=== PATIENT | female | born 1985 | race Caucasian/White ===

== ENCOUNTER 2018-07-11 10:01 | Emergency (ER) | payer SELFPAY ==
--- NOTE | 2018-07-11 10:44 | ER Document Report ---
ED General - General Chief Complaint: Vaginal Bleeding Stated Complaint: VAGINAL BLEED Time Seen by Provider: 07/11/18 10:36 Notes: Patient is a 33-year-old female that is at approximately 11 weeks gravid that presents to the emergency department for chief complaint of vaginal bleeding. Patient states that last night she had vaginal bleeding, and thinks she passed a clot that she states is rather large, and she has had some blood with wiping this morning as well. She had some mild cramping at the time, but has since resolved, denies having any pain at this time. She reports she is otherwise healthy, has been doing otherwise well this . She does smoke about a pack of cigarettes every 3 days. She denies any alcohol use. Denies prior history of miscarriage. She denies having lightheadedness, dizziness, chest pain, shortness of breath, nausea, vomiting. Past Medical History: Denies chronic medical conditions Past Surgical History: Tonsillectomy Social History: Admits to smoking a pack of cigarettes every 3 days, denies current alcohol or drug use. Family History: Reviewed and noncontributory for presenting illness Allergies: Reviewed, see documented allergy list. REVIEW OF SYSTEMS: Other than noted above, the 12 point review of systems was reviewed with the patient and were negative, all pertinent findings are included in the HPI. PHYSICAL EXAMINATION: Vital signs reviewed, nursing noted reviewed. GENERAL: Well-appearing, well-nourished and in no acute distress. HEAD: Atraumatic, normocephalic. EYES: Eyes appear normal, extraocular movements intact, sclera anicteric, conjunctiva are normal. ENT: nares patent, oropharynx clear without exudates. Moist mucous membranes. NECK: Normal range of motion, supple without lymphadenopathy LUNGS: Breath sounds clear to auscultation bilaterally and equal. No wheezes rales or rhonchi. HEART: Regular rate and rhythm without murmurs ABDOMEN: Soft, nontender, normoactive bowel sounds. No rebound, guarding, or rigidity. No masses appreciated. EXTREMITIES: Nontender, good range of motion, no pitting or edema. NEUROLOGICAL: No focal neurological deficits. Moves all extremities spontaneously Motor and sensory grossly intact on exam. PSYCH: Normal mood, normal affect. SKIN: Warm, Dry, normal turgor, no rashes or lesions noted on exposed skin TRAVEL OUTSIDE OF THE [place] IN LAST 30 DAYS: No - Related Data Allergies/Adverse Reactions: No Known Allergies Allergy (Unverified 05/26/16 18:02) Past Medical History - Social History Smoking Status: Current Every Day Smoker Chew tobacco use (# tins/day): No Frequency of alcohol use: None Drug Abuse: None Family History: None Patient has suicidal ideation: No Patient has homicidal ideation: No Renal/ Medical History: Denies: Hx Peritoneal Dialysis Past Surgical History: Reports: Hx Tonsillectomy Physical Exam - Vital signs Vitals: Temp Pulse Resp BP Pulse Ox 98.7 F 69 16 107/65 98 07/11/18 10:07 07/11/18 10:07 07/11/18 10:07 07/11/18 10:07 07/11/18 10:07 Course - Re-evaluation Re-evalutation: Patient seen and examined, vital signs reviewed. Patient appears well on exam, she did not have any other complaints of than the vaginal bleeding as described in the HPI. She denied having any pain. Urinalysis, quantitative hCG, and CBC obtained, as well as a transvaginal ultrasound to evaluate for live intrauterine . Ultrasound demonstrated a single live intrauterine , approximately 11 weeks by crown-rump length, closed cervical loss, no subchorionic hemorrhage, or other evidence of bleeding at this time. No anemia. Patient's blood type is O+ according to the patient, no indication for RhoGam on this visit. UA was positive for signs of urinary tract infection, patient will be discharged home with Keflex twice daily for 5 days, she is encouraged strongly to discontinue smoking cigarettes while , and advised bedrest for the next 48 hours, and advised to follow-up with [facility]. - Vital Signs Vital signs: Temp Pulse Resp BP Pulse Ox 99.2 F 60 18 113/64 100 07/11/18 12:02 07/11/18 12:02 07/11/18 12:02 07/11/18 12:02 07/11/18 12:02 - Laboratory Result Diagrams: 07/11/18 11:06 Laboratory results interpreted by me: 07/11/18 07/11/18 11:06 11:06 Beta HCG, Quant 712217.00 H Urine Urobilinogen 4.0 H Ur Leukocyte Esterase MODERATE H Discharge - Discharge Clinical Impression: Vaginal bleeding affecting early UTI (urinary tract infection) Qualifiers: Urinary tract infection type: site unspecified Hematuria presence: without hematuria Qualified Code(s): N39.0 - Urinary tract infection, site not specified Condition: Stable Disposition: HOME, SELF-CARE Instructions: Bleeding During Early ([facility]), Urinary Tract Infection ( [facility]) Additional Instructions: Please take the antibiotics as prescribed, please follow-up with [facility], call for an appointment tomorrow. Please monitor for signs of abdominal cramping, and any further vaginal bleeding, do not hesitate to return to the emergency department if you have any further concerns or worsening symptoms. Prescriptions: Cephalexin [Keflex] 500 mg PO BID #10 capsule Referrals: DEANA PRESSLEY MD [Primary Care Provider] - Follow up as needed [facility] [Provider Group] - Follow up tomorrow
[2018-07-11 11:20] LABS: ABSOLUTE LYMPHOCYTES (AUTO) 2.1 10^3/uL (0.5-4.7); RED CELL DISTRIBUTION WIDTH 12.7 % (11.5-14.0); TOTAL CELLS COUNTED % (AUTO) 100 %; WHITE BLOOD COUNT 6.3 10^3/uL (4.0-10.5)
[2018-07-11 11:26] LABS: APPEARANCE,URINE SLIGHTLY-CLOUDY; BILIRUBIN,URINE NEGATIVE (NEGATIVE); COLOR,URINE YELLOW; GLUCOSE, URINE NEGATIVE (NEGATIVE); KETONES,URINE NEGATIVE (NEGATIVE); LEUKOCYTE ESTERASE,URINE MODERATE (NEGATIVE); NITRITE,URINE NEGATIVE (NEGATIVE); PROTEIN,URINE NEGATIVE (NEGATIVE); URINE SPECIFIC GRAVITY 1.021
[2018-07-11 11:28] LABS: ABSOLUTE EOSINOPHILS # (AUTO) 0.2 10^3/uL (0.0-0.6); ABSOLUTE MONOCYTES (AUTO) 0.4 10^3/uL (0.1-1.4); ABSOLUTE NEUT (AUTO) 3.6 10^3/uL (1.7-8.2); BASOPHILS % (AUTO) 0.7 % (0-2); EOSINOPHILS % (AUTO) 2.6 % (0-6); HEMATOCRIT 40.2 % (36.0-47.0); HEMOGLOBIN 14.1 g/dL (12.0-15.5); LYMPHOCYTES % (AUTO) 33.4 % (13-45); MEAN CORPUSCULAR HEMOGLOBIN 30.7 pg (27.0-33.4); MEAN CORPUSCULAR HGB CONC 35.1 g/dL (32.0-36.0); MEAN CORPUSCULAR VOLUME 88 fl (80-97); MONOCYTES % (AUTO) 7.1 % (3-13); PLATELET COUNT 220 10^3/uL (150-450); RED BLOOD COUNT 4.59 10^6/uL (3.72-5.28); SEGMENTED NEUTROPHILS % (AUTO) 56.2 % (42-78)
--- NOTE | 2018-07-11 11:50 | RADIOLOGY REPORT (SQ) ---
EXAM DESCRIPTION: U/S OB TRANSVAGINAL W/O DOP COMPLETED DATE/TIME: 07/11/2018 11:39 am REASON FOR STUDY: bleeding, passed clot, 11wks gravid COMPARISON: None. TECHNIQUE: Transabdominal static and realtime grayscale images acquired of the pelvis. Additional se lected spectral and color Doppler images recorded. All images stored on PACs. bHCG: Pending. CLINICAL DATES: 11 weeks 3 days LIMITATIONS: None. FINDINGS: FETUS: Single Living intrauterine . ULTRASOUND EGA: 11 weeks 5 days ULTRASOUND JON: 01/25/2019 EFW: Not applicable less than 20 weeks. CRL: 5 cm FHR: 162 beats per minute. SURVEY: Too early to assess. AMNIOTIC FLUID: Adequate amount. PLACENTA: Not yet developed due to early gestation. SUBCHORIONIC BLEED: No SIZE OF BLEED: Not applicable. UTERUS: No masses. No anomalies. CERVICAL LENGTH: 4.3 cm Closed. RIGHT ADNEXA: Normal ovary with normal vascular flow. No adnexal free fluid. No adnexal masses. LEFT ADNEXA: Ovary not identified due to poor acoustical window. No adnexal free fluid. No adnexal masses. FREE FLUID: None. OTHER: No other significant finding. IMPRESSION: LIVING INTRAUTERINE . EGA 11 weeks 5 days Trimester of : First - 0 to 13 weeks. TECHNICAL DOCUMENTATION: JOB ID: [id number] [employer]- All Rights Reserved Reading location - IP/workstation name: [email or web address]
[2018-07-11 12:03] VITALS: BP 113/64
== END 2018-07-11 12:12 | disposition home or self-care (01) ==
LOC: ER 10:01
DX: O23.41 Unspecified infection of urinary tract in pregnancy, first trimester (principal); O20.9 Hemorrhage in early pregnancy, unspecified; O99.331 Smoking (tobacco) complicating pregnancy, first trimester; F17.210 Nicotine dependence, cigarettes, uncomplicated; Z3A.11 11 weeks gestation of pregnancy
CPT/HCPCS: 36415; 76817; 81001; 84702; 85025; 87086; 99284

== ENCOUNTER 2019-01-02 20:52 | Outpatient (CLI) | payer MEDICAID ==
[2019-01-02 21:39] LABS: APPEARANCE,URINE CLOUDY; BILIRUBIN,URINE NEGATIVE (NEGATIVE); CALCIUM OXALATE CRYSTALS,URINE MANY /HPF; COLOR,URINE YELLOW; GLUCOSE, URINE NEGATIVE (NEGATIVE); KETONES,URINE TRACE mg/dL (NEGATIVE); LEUKOCYTE ESTERASE,URINE MODERATE (NEGATIVE); NITRITE,URINE NEGATIVE (NEGATIVE); PROTEIN,URINE NEGATIVE (NEGATIVE); URINE SPECIFIC GRAVITY 1.024
[2019-01-02 21:57] LABS: URINE AMPHETAMINES SCREEN NEGATIVE; URINE BARBITURATES SCREEN NEGATIVE; URINE BENZODIAZEPINES SCREEN NEGATIVE; URINE COCAINE SCREEN NEGATIVE; URINE MARIJUANA (THC) SCREEN NEGATIVE; URINE METHADONE SCREEN NEGATIVE; URINE PHENCYCLIDINE SCREEN NEGATIVE
--- NOTE | 2019-01-02 22:35 | Non Stress Test Report ---
Non Stress Test Datetime Report Generated by CPN: 01/02/2019 22:35 DEMOGRAPHIC EGA NST: 36.3 INDICATION Indication for Study: Ordered by Provider; Other Indication for Study (NST) Other: labor check MONITORING Monitor Explained: Monitor Explained; Test Explained; Patient Verbalized Understanding Time on Monitor: 01/02/2019 21:11 Time off Monitor: 01/02/2019 22:24 NST Duration: 73 NST INTERVENTIONS NST Interventions: None Physician Notified NST: Dr Jorgensen BABY A: [id number] BABY A Movement : Present Contraction Frequency : 2-12 FHR Baseline : 140 Accelerations : 15X15 Decelerations : None Variability : Moderate 6-25bpm NST Review: Questionable if Meets Criteria for Reactive NST NST Review and Verified By : Tamir Alex RN NST Results: Reactive NST REPORT Report Trigger: Send Report
== END 2019-01-02 22:32 | disposition home or self-care (01) ==
LOC: LC 20:52
PROVIDERS: ATTEND Obstetrics & Gynecology
PROC: 4A1HXCZ Monitoring of Products of Conception, Cardiac Rate, External Approach (ICD-10-PCS; principal; 2019-01-02)
DX: O47.03 False labor before 37 completed weeks of gestation, third trimester (principal); Z3A.36 36 weeks gestation of pregnancy
CPT/HCPCS: 59025; 80307; 81001; 84112

== ENCOUNTER 2019-01-13 02:46 | Inpatient (IN) | payer MEDICAID ==
[2019-01-13 03:18] LABS: APPEARANCE,URINE SLIGHTLY-CLOUDY; BILIRUBIN,URINE NEGATIVE (NEGATIVE); COLOR,URINE YELLOW; GLUCOSE, URINE NEGATIVE (NEGATIVE); KETONES,URINE NEGATIVE (NEGATIVE); LEUKOCYTE ESTERASE,URINE MODERATE (NEGATIVE); NITRITE,URINE NEGATIVE (NEGATIVE); PROTEIN,URINE NEGATIVE (NEGATIVE); URINE SPECIFIC GRAVITY 1.012; UROBILINOGEN,URINE NEGATIVE mg/dL (<2.0)
[2019-01-13] MEDS ORDERED: OXYTOCIN 10 UNIT/ML VIAL ONE (03:24)
[2019-01-13] MEDS ORDERED: MISOPROSTOL 0.2 MG TABLET ONE (03:24)
[2019-01-13] MEDS ORDERED: OXYTOCIN/NORMAL SALINE 20 UNIT/1,000 ML RTUINJ ONE (03:25)
[2019-01-13] MEDS ORDERED: LIDOCAINE 1% INJ-PF (10 MG/ML) 30 ML SDV ONE (03:25)
[2019-01-13] MEDS ORDERED: RINGERS SOLUTION,LACTATED 1,000 ML IV PRN (03:26)
--- NOTE | 2019-01-13 03:28 | Admission Physical ---
Datetime Report Generated by CPN: 01/13/2019 03:27 CURRENT ADMISSION Chief Complaint: Uterine Contractions; Suspected Ruptured Membranes Indication for Induction: Not Applicable Admit Impression : Term, Intrauterine ; Active Labor; Ruptured Membranes Admit Plan: Admit to Unit; Initiate Labor Protocol ALLERGIES Medication Allergies: No Medication Allergies: No Known Allergies (05/26/2016) Latex: No Latex Allergies OBSTETRICAL HISTORY EDC: 01/27/2019 00:00 : 6 Para: 4 Term: 2 : 2 IAB: 1 Livin Cesareans: 0 VBACs: 0 Multiple Births: 0 Gestational Diabetes: No Rh Sensitization: No Incompetent Cervix: No SELENA: No Infertility: No ART Treatment: No Uterine Anomaly: No IUGR: No Hx Previous C/S: No Macrosomia: No Hx Loss/Stillborn: No PIH: No Hx : No Placenta Previa/Abruption: No Depression/PP Depression: Yes PTL/PROM: Yes Post Hemorrhage: No Current Procedures: Ultrasound Obstetrical History Comments: G1-EAB G2- 2004 36 week 6lbs 9 oz male G3- 2005 36 week 7lbs 2 oz male G4- 2007 39.6 7lbs 15 oz male G5- 38 weeks 5lbs 11oz male G6- current, late to [facility] RECORDS Alcohol: No Marijuana : No Cocaine: No Other Illicit Drugs: No Cigarettes: Current Everyday Smoker. [id number] Cigarette Frequency: < 5 per day Advised to Stop: Yes MEDICAL HISTORY Diabetes: No Blood Transfusion: No Pulmonary Disease (Asthma, TB): No Breast Disease: No Hypertension: No Sign Manufacturer Surgery: No Heart Disease: No Hosp/Surgery: No Autoimmune Disorder: No Anesthetic Complications: No Kidney Disease: No Abnormal Pap Smear: No Neuro/Epilepsy: No Psychiatric Disorders: No Other Medical Diseases: No Hepatitis/Liver Disease: No Significant Family History: No Varicosities/Phlebitis: No Trauma/Violence : No Thyroid Dysfunction: No Medical History Comments: depression, anxiety, INFECTIOUS HISTORY Gonorrhea: No Genital Herpes: No Chlamydia: Yes Tuberculosis: No Syphilis: No Hepatitis: No HIV/AIDS Exposure: No Rash or Viral Illness: No HPV: No Infectious History Comments: 2003 chlamydia PHYSICAL EXAM General: Normal HEENT: Normal Neurologic: Normal Thyroid: Normal Heart: Normal Lungs: Normal Breast: Normal Back: Normal Abdomen: Normal Genitourinary Exam: Normal Extremities: Normal DTRs: Normal Pelvic Type: Adequate Vital Signs: Reviewed; Within Normal Limits VAGINAL EXAM Dilatation: 4 Effacement: 80 Station: -2 Contraction Comments: q 2-3 MEMBRANES Pooling: Positive Ferning Results: Positive Membranes: Ruptured Amniotic Fluid Color: Clear FETUS A EGA: 38.0 Monitoring: External US FHR- Baseline: 120s Variability: Moderate 6-25bpm Accelerations: 15X15 Decelerations: None FHR Category: Category III Admit Comment: presents to L_D c/o "I think my water broke at 0130" and contractions. Pt admits to good movement. GBS Neg. No co-morbidities. PLANS FOR LABOR AND DELIVERY Labor and Delivery: None Pain Management: Epidural Feeding Preference: Formula Benefit of Breast Feed Discussed: Yes Circumcision: Yes INFORMED CONSENT Signature: with User ID: [email or web address]
[2019-01-13 03:34] LABS: URINE AMPHETAMINES SCREEN NEGATIVE; URINE BARBITURATES SCREEN NEGATIVE; URINE BENZODIAZEPINES SCREEN NEGATIVE; URINE COCAINE SCREEN NEGATIVE; URINE MARIJUANA (THC) SCREEN NEGATIVE; URINE METHADONE SCREEN NEGATIVE; URINE PHENCYCLIDINE SCREEN NEGATIVE
[2019-01-13] MEDS ORDERED: EPHEDRINE SULFATE INJ 50 MG/1 ML AMPULE ONE (03:43)
[2019-01-13] MEDS ORDERED: FENTANYL/BUPIVACAINE/NS/PF 300 MCG/150 ML RTUINJ EPI ONE (03:43)
[2019-01-13] MEDS ORDERED: BUPIVACAINE HCL 0.25 % INJ/PF (2.5 MG/1 ML) 30 ML VIAL ONE (03:43)
[2019-01-13 03:52] LABS: ABSOLUTE EOSINOPHILS # (AUTO) 0.1 10^3/uL (0.0-0.6); ABSOLUTE LYMPHOCYTES (AUTO) 2.3 10^3/uL (0.5-4.7); ABSOLUTE MONOCYTES (AUTO) 0.7 10^3/uL (0.1-1.4); ABSOLUTE NEUT (AUTO) 8.7 10^3/uL (1.7-8.2); BASOPHILS % (AUTO) 0.2 % (0-2); EOSINOPHILS % (AUTO) 0.6 % (0-6); HEMATOCRIT 32.8 % (36.0-47.0); LYMPHOCYTES % (AUTO) 19.2 % (13-45); MEAN CORPUSCULAR HEMOGLOBIN 29.3 pg (27.0-33.4); MEAN CORPUSCULAR HGB CONC 33.6 g/dL (32.0-36.0); MEAN CORPUSCULAR VOLUME 87 fl (80-97); MONOCYTES % (AUTO) 6.2 % (3-13); PLATELET COUNT 178 10^3/uL (150-450); RED BLOOD COUNT 3.77 10^6/uL (3.72-5.28); RED CELL DISTRIBUTION WIDTH 13.2 % (11.5-14.0); SEGMENTED NEUTROPHILS % (AUTO) 73.8 % (42-78); TOTAL CELLS COUNTED % (AUTO) 100 %; WHITE BLOOD COUNT 11.8 10^3/uL (4.0-10.5)
[2019-01-13] MEDS ORDERED: DIBUCAINE 1% OINTMENT 56 GM TP PRN (07:20)
[2019-01-13] MEDS ORDERED: HYDROCODONE/ACETAMINOPHEN 5-325 MG TABLET PO PRN (07:20)
[2019-01-13] MEDS ORDERED: DIPH/PERTUSS(ACELL)/TETANUS VAC/PF 0.5 ML SYR (>=10YO) IM PRN (07:20)
[2019-01-13] MEDS ORDERED: ZOLPIDEM TARTRATE 5 MG TABLET PO PRN (07:20)
[2019-01-13] MEDS ORDERED: BENZOCAINE/MENTHOL AEROSOL SPRAY 56 ML TOP PRN (07:20)
[2019-01-13] MEDS ORDERED: ACETAMINOPHEN WITH CODEINE #3 TABLET PO PRN (07:20)
[2019-01-13] MEDS ORDERED: OXYTOCIN/NORMAL SALINE 20 UNIT/1,000 ML RTUINJ IV PRN (07:20)
--- NOTE | 2019-01-13 09:17 | Delivery Summary ---
Del Sum A-C Datetime Report Generated by CPN: 01/13/2019 09:17 DELIVERY PERSONNEL DELIVERY PERSONNEL: [id number] Delivery Doctor:: Shena Alvarado MD Labor and Delivery Nurse:: Carolyn Bates RN Labor and Delivery Nurse:: Odette Post RN Senior Java Engineer:: Lucila Schmitt RN Resin Coater/AUTOMOBILE SEAT COVER INSTALLER: Kisha Mirza WET MILLING WHEEL OPERATOR Additional Personnel: : Erin Armenta RN MATERNAL INFORMATION Delivery Anesthesia: Epidural Medications During Delivery: cytotec 1000 mcg per rectum Medications After Delivery: Pitocin Drip 20 Units/1000ml NSS; Cytotec 1000mcg Per Rectum/Vagina Estimated Blood Loss (ml): 300 Maternal Complications: None Provider Comments: of a viable male @ 0659 w/ an KARSON presentation; APGARS 9, 9; no lacs LABOR SUMMARY EDC: 01/27/2019 00:00 No. Babies in Womb: 1 Attempted: No Labor Anesthesia: Epidural LABOR INFORMATION Reason for Induction: Not Applicable Onset of Labor: 01/13/2019 01:30 Complete Dilatation: 01/13/2019 06:48 Oxytocin: N/A Group B Beta Strep: Negative Antibiotics # of Doses: 0 Antibiotics Time of Last Dose: N/A Name of Antibiotic Given: N/A Steroids Given: None Reason Steroids Not Administered: Not Applicable MEMBRANES Membranes Rupture Method: Spontaneous Rupture of Membranes: 01/13/2019 01:30 Length of Rupture (hr): 5.48 Amniotic Fluid Color: Clear Amniotic Fluid Amount: Small Amniotic Fluid Odor: Normal STAGES OF LABOR Stage 1 hr: 5 Stage 1 min: 18 Stage 2 hr: 0 Stage 2 min: 11 Stage 3 hr: 0 Stage 3 min: 7 Total Time in Labor hr: 5 Total Time in Labor min: 36 VAGINAL DELIVERY Episiotomy: None Laceration #1: None Laceration Extension #1: N/A Laceration Repair: Not Applicable Sponge Count Correct: Yes Sharps Count Correct: Yes CSECTION DELIVERY Primary Indication: N/A Secondary Indication: N/A CSection Incidence: N/A Labor: N/A Elective: N/A BABY A INFORMATION Delivery Date/Time: 01/13/2019 06:59 Method of Delivery: Vaginal Born in Route : No : N/A Forceps: N/A Vacuum Extraction: N/A Shoulder Dystocia : No PRESENTATION/POSITION BABY A Presentation: Cephalic Cephalic Presentation: Vertex Vertex Position: Left Occipital Anterior Breech Presentation: N/A PLACENTA INFORMATION BABY A Placenta Delivery Time : 01/13/2019 07:06 Placenta Method of Delivery: Spontaneous Placenta Status: Delivered SCORES BABY A Heart Rate 1 min: >100 bpm Resp Effort 1 min: Good Cry Reflex Irritability 1 min: Cough or Sneeze or Pulls Away Muscle Tone 1 min: Active Motion Color 1 min: Body Benjamin Perez, Extremities Blue SCORE 1 MIN: 9 Heart Rate 5 min: >100 bpm Resp Effort 5 min: Good Cry Reflex Irritability 5 min: Cough or Sneeze or Pulls Away Muscle Tone 5 min: Active Motion Color 5 min: Body Benjamin Perez, Extremities Blue SCORE 5 MIN: 9 INFANT INFORMATION BABY A Gestational Age at Delivery: 38.0 Gestational Status: Early Term- 37- 38.6 Weeks Infant Outcome : Liveborn Condition : Stable Infant Sex: Male IDENTIFICATION BABY A Infant Verification Date/Time: 01/13/2019 07:13 ID Band Number: [id number] Mother's Name Verified: Yes Infant RN Verifying : , RN and C.Armenta, RN WEIGHT/LENGTH BABY A Infant Birthweight (gm): 2987 Weight (lb): 6 Infant Weight (oz): 9 Infant Length (in): 19.50 Infant Length (cm): 49.53 CORD INFORMATION BABY A No. Cord Vessels: 3 Nuchal Cord : N/A True Knot: 1 Cord Blood Taken: Yes-For Eval (Mom's Blood Type - or O+) ASSESSMENT BABY A Infant Complications: None Physical Findings at Delivery: Within Normal Limits Infant Respirations: Appears Normal Care By: C.Armenta, RN Transferred To: Remains with Mother BABY B INFORMATION : N/A SIGNATURES Signature: with User ID: [email or web address]
[2019-01-13] MEDS: SENNOSIDES/DOCUSATE 8.6-50 MG 1 EACH TABLET PO SCH (10:39)
[2019-01-13] MEDS: DOCUSATE SODIUM 100 MG CAPSULE PO SCH ×2 (10:39→17:40)
[2019-01-13] MEDS: FERROUS SULFATE 325 MG TABLET PO SCH ×2 (10:39→17:40)
[2019-01-13] MEDS: PRENATAL VITAMIN W DHA CAPSULE PO SCH (10:39)
[2019-01-13] MEDS: IBUPROFEN 800 MG TABLET PO SCH ×2 (13:19→21:23)
[2019-01-13] MEDS: ACETAMINOPHEN WITH CODEINE #3 TABLET PO PRN (17:41)
[2019-01-14] MEDS: IBUPROFEN 800 MG TABLET PO SCH ×3 (05:02→22:20)
[2019-01-14 07:26] LABS: HEMATOCRIT 29.8 % (36.0-47.0); HEMOGLOBIN 10.2 g/dL (12.0-15.5); MEAN CORPUSCULAR HEMOGLOBIN 29.9 pg (27.0-33.4); MEAN CORPUSCULAR HGB CONC 34.3 g/dL (32.0-36.0); MEAN CORPUSCULAR VOLUME 87 fl (80-97); PLATELET COUNT 161 10^3/uL (150-450); RED BLOOD COUNT 3.42 10^6/uL (3.72-5.28); RED CELL DISTRIBUTION WIDTH 12.9 % (11.5-14.0); WHITE BLOOD COUNT 8.7 10^3/uL (4.0-10.5)
[2019-01-14] MEDS: ACETAMINOPHEN WITH CODEINE #3 TABLET PO PRN ×2 (07:57→17:34)
[2019-01-14] MEDS: FERROUS SULFATE 325 MG TABLET PO SCH ×2 (11:08→17:34)
[2019-01-14] MEDS: SENNOSIDES/DOCUSATE 8.6-50 MG 1 EACH TABLET PO SCH (11:08)
[2019-01-14] MEDS: DOCUSATE SODIUM 100 MG CAPSULE PO SCH ×2 (11:08→17:34)
[2019-01-14] MEDS: PRENATAL VITAMIN W DHA CAPSULE PO SCH (11:08)
--- NOTE | 2019-01-14 12:10 | PDOC PROGRESS REPORT ---
Subjective Progress Note for:: 01/14/19 Subjective:: doing well, s/p vaginal delivery. minimal lochia Reason For Visit: Physical Exam - Physical Exam Vital Signs: Temp Pulse Resp BP Pulse Ox 97.9 F 62 16 103/65 97 01/14/19 07:51 01/14/19 07:51 01/14/19 07:51 01/14/19 07:51 01/14/19 07:51 Intake & Output 01/13/19 01/14/19 01/15/19 06:59 06:59 06:59 Weight 80.8 kg General appearance: PRESENT: no acute distress, cooperative - Obstetrical Exam Fundal Height: 1/u - 2/u Result Laboratory Results: 01/14/19 06:51 01/14/19 06:51 WBC 8.7 RBC 3.42 L Hgb 10.2 L Hct 29.8 L MCV 87 MCH 29.9 MCHC 34.3 RDW 12.9 Plt Count 161 Assessment & Plan - Diagnosis (1) Vaginal delivery Is this a current diagnosis for this admission?: Yes (2) Anemia Qualifiers: Anemia type: unspecified type Qualified Code(s): D64.9 - Anemia, unspecified Is this a current diagnosis for this admission?: Yes - Time Time Spent with patient: Less than 15 minutes Anticipated discharge: Home Within: within 24 hours - Inpatient Certification Based on my medical assessment, after consideration of the patient's comorbidities, presenting symptoms, or acuity I expect that the services needed warrant INPATIENT care.: Yes I certify that my determination is in accordance with my understanding of Medicare's requirements for reasonable and necessary INPATIENT services [42 CFR 412.3e].: Yes Medical Necessity: Other - s/p vaginal delivery day 1 - Plan Summary Plan Summary: discharge in AM
[2019-01-15] MEDS: IBUPROFEN 800 MG TABLET PO SCH ×2 (05:56→13:35)
[2019-01-15] MEDS: ACETAMINOPHEN WITH CODEINE #3 TABLET PO PRN (08:13)
[2019-01-15 08:23] VITALS: BP 110/62
[2019-01-15] MEDS: PRENATAL VITAMIN W DHA CAPSULE PO SCH (11:01)
[2019-01-15] MEDS: FERROUS SULFATE 325 MG TABLET PO SCH (11:01)
[2019-01-15] MEDS: SENNOSIDES/DOCUSATE 8.6-50 MG 1 EACH TABLET PO SCH (11:01)
[2019-01-15] MEDS: DOCUSATE SODIUM 100 MG CAPSULE PO SCH (11:01)
--- NOTE | 2019-01-15 13:00 | PDOC DISCHARGE SUMMARY ---
Final Diagnosis Discharge Date: 01/15/19 - Final Diagnosis (1) Anemia Is this a current diagnosis for this admission?: Yes (2) Vaginal delivery Is this a current diagnosis for this admission?: Yes Discharge Data - Discharge Medication Prescriptions: Acetaminophen with Codeine [Tylenol #3 Tablet] 1 each PO Q4HP PRN #30 tablet PRN Reason: Ibuprofen [Motrin 800 mg Tablet] 800 mg PO Q8 #60 tablet Home Medications: Prenat 115/Iron Fum/Folic/Dss [ 19 Tablet] 1 tab PO DAILY 01/02/19 Acetaminophen with Codeine [Tylenol #3 Tablet] 1 each PO Q4HP PRN #30 tablet 01/15/19 Ibuprofen [Motrin 800 mg Tablet] 800 mg PO Q8 #60 tablet 01/15/19 Reason(s) for Admission: Onset of Labor Procedures: NST Intrapartum Procedure(s): Spontaneous Vaginal Delivery - Diagnosis Test Laboratory: Temp Pulse Resp BP Pulse Ox 98.3 F 60 16 110/62 99 01/15/19 07:53 01/15/19 07:53 01/15/19 07:53 01/15/19 07:53 01/15/19 07:53 01/13/19 01/13/19 01/14/19 02:55 03:39 06:51 RBC 3.77 3.42 L Hgb 11.0 L 10.2 L Hct 32.8 L 29.8 L Urine Opiates Screen NEGATIVE - Discharge information/Instructions Discharge Activity: Activity As Tolerated, Pelvic Rest Discharge Diet: Regular Disposition: HOME, SELF-CARE Follow up with: [facility] in: 4, Weeks
== END 2019-01-15 14:55 | disposition home or self-care (01) | DRG 807 ==
LOC: LC 02:46 → LR 03:26 → 2S 09:01
PROVIDERS: ADMIT Obstetrics & Gynecology; ATTEND Obstetrics & Gynecology
PROC: 10E0XZZ Delivery of Products of Conception, External Approach (ICD-10-PCS; principal; 2019-01-13)
DX: O99.334 Smoking (tobacco) complicating childbirth (principal); Z37.0 Single live birth; F17.210 Nicotine dependence, cigarettes, uncomplicated; Z3A.38 38 weeks gestation of pregnancy; O99.344 Other mental disorders complicating childbirth; F32.9 Major depressive disorder, single episode, unspecified; F41.9 Anxiety disorder, unspecified; O99.02 Anemia complicating childbirth; D64.9 Anemia, unspecified
CPT/HCPCS: 36415; 80307; 81005; 84112; 85025; 85027; 86592; 86850; 86900; 86901; J2590; J3010; J3490